=== PATIENT | female | born 1945 ===

== ENCOUNTER → 2018-02-27 | Outpatient (CLI) | payer MEDICARE, OTHER | LOC: GMAJ 16:52 | PROVIDERS: ATTEND Family Medicine | DX: E03.9 Hypothyroidism, unspecified (principal) ==

== ENCOUNTER → 2018-03-20 | Outpatient (CLI) | payer MEDICARE, OTHER ==
--- NOTE | 2018-03-20 17:26 | CT ---
EXAM DESCRIPTION: CTA Chest CLINICAL HISTORY: 72 years, Female, atrial mass, history of mesothelioma and breast cancer COMPARISON: None TECHNIQUE: CT pulmonary angiography is performed with thin-section multi detector technique during rapid bolus administration of routine adult dose of nonionic iodinated IV contrast media. Multiplanar reformatted images are reviewed along with source images and maximum intensity images. FINDINGS: Normal enhancement of pulmonary arteries. Normal enhancement of cardiac chambers. Triangular filling defect projecting from the anterior wall of the left atrium is seen with low density consistent with adherent thrombus 1.9 x 1.2 cm. Correlate with echocardiographic findings. Early enhancement of the aorta is negative for aneurysm or dissection. Lung window images are negative for infiltrate. No worrisome mass or nodule. In the upper abdomen, cysts are seen in the liver which appear benign. The gallbladder is surgically absent. The upper abdominal viscera are otherwise unremarkable. No chest wall mass or rib fracture. No axillary or lower cervical adenopathy. Patient is status post right breast lumpectomy. Coronal and sagittal reformatted MIP images confirm normal pulmonary arterial enhancement. Fibrotic changes in the lung apices. Mild subpleural fibrosis in the anterior upper lobes, right middle lobe and right lower lobe. Patchy density in the medial right lung base is consistent with chronic scarring with bronchiolectasis. No acute-appearing pneumonic infiltrate or malignant appearing lesion of the lungs to suggest primary or metastatic tumor. No bone destruction. Coronal, sagittal and oblique MIP images show normal pulmonary arterial enhancement. Coronal images show minimal groundglass edema or infiltrate in the left lung base. IMPRESSION: Negative for evidence of pulmonary embolic disease. Filling defect in the left atrium consistent with wall-adherent thrombus. This exam was performed according to our departmental dose-optimization program, which includes automated exposure control, adjustment of the mA and/or kV according to patient size and/or use of iterative reconstruction technique. Total DLP equals 570.22 mGycm. Electronically signed by: Tono Bunch MD 03/20/2018 5:24 PM CDT
== END ==
LOC: CT 08:51
PROVIDERS: ATTEND Family Medicine
DX: M54.6 Pain in thoracic spine (principal)

== ENCOUNTER → 2018-10-08 | Outpatient (CLI) | payer MEDICARE, OTHER ==
--- NOTE | 2018-10-08 15:28 | US ---
EXAM DESCRIPTION: Abdomen,Complete: Ultrasound. CLINICAL HISTORY: ABN RESULTS OF LIVER FUNCTION TESTS COMPARISON: None Available. TECHNIQUE: Transabdominal scannin-dimensional and Doppler modes. FINDINGS: Gallbladder: Has been surgically removed. No fluid in the gallbladder fossa. Right upper quadrant nontender with transducer pressure. Common bile duct: 10.6 mm slightly dilated postcholecystectomy. Liver: 10 x 8 mm cyst in the left lobe. Long axis of the right lobe is 12.5 cm. No focal solid lesions seen. Normal flow in the portal vein and intrahepatic ducts not dilated. Smooth capsule with no ascites. Pancreas: Unremarkable.. Abdominal aorta: Normal caliber from the proximal segment to the distal bifurcation. IVC: visualized; normal caliber. Spleen normal echogenicity; long axis measurement is 9.6 cm. Right kidney: 10.0 cm long axis. Normal cortical thickness and echogenicity. No hydronephrosis, large echogenic stones, or perirenal fluid. Left kidney: 9.7 cm long axis. Normal cortical thickness and echogenicity. No hydronephrosis, large echogenic stones, or perirenal fluid. IMPRESSION: 1. Postcholecystectomy. No fluid free fluid or tenderness. Common bile duct slightly dilated postcholecystectomy. 2. 3 mm cyst in the liver. Otherwise unremarkable. Pancreas negative. Spleen is unremarkable. 3. Bilateral kidneys negative findings. Electronically signed by: Carlos Estrella MD 10/08/2018 3:26 PM CDT
--- NOTE | 2018-10-10 09:39 | MAM ---
EXAM DESCRIPTION: 3D Screening BILATERAL : Digital Mammography. CLINICAL HISTORY: 72 years Female SCREENING History of breast cancer on the right breast October 2000.. Remote family history of breast cancer. Postmenopausal 30 years. Taken HRT 5 or more years ago. No childbirth. Lifetime risk of developing breast cancer (Tyrer-Cuzick model)(%): Calculated due to personal history of breast cancer. COMPARISON: Baseline study at this facility.. TECHNIQUE: Bilateral CC and MLO projection full-field images, digital tomosynthesis mammographic technique. Bilateral digital 2-D full-field MLO images. CAD not available for tomosynthesis or 2-D images. FINDINGS: The breast parenchymal density pattern is: Scattered areas of fibroglandular density. No skin thickening or nipple retraction. Multiple large calcifications solitary in the right breast which is significantly smaller than the left breast. Fewer solitary calcifications left breast. Left breast axillary and intramammary lymph nodes. Fibroglandular tissues are central in both breasts. Focal asymmetry in the junction of the posterior middle third of the medial left breast approximately 8 cm from the nipple, 9:00 position. Not associated with abnormal calcifications. No focal, stellate mass or density, focal asymmetry , and no suspicious microcalcifications right breast. IMPRESSION: BI-RADS CATEGORY: 0 - INCOMPLETE- Need additional imaging evaluation. FOLLOW-UP: Recall for additional imaging: Targeted ultrasound of the left breast in the region of interest.. Written communication concerning the IMPRESSION and Follow-up, will be mailed to the patient and referring health care provider. Electronically signed by: Carlos Estrella MD 10/10/2018 9:37 AM CDT
== END ==
LOC: US 09:01
PROVIDERS: ATTEND Family Medicine
DX: Z12.31 Encounter for screening mammogram for malignant neoplasm of breast (principal); R94.5 Abnormal results of liver function studies; Z90.49 Acquired absence of other specified parts of digestive tract; K76.89 Other specified diseases of liver

== ENCOUNTER → 2018-11-24 | Outpatient (CLI) | payer MEDICARE, OTHER ==
--- NOTE | 2018-11-25 08:47 | CT ---
EXAM DESCRIPTION: Abdoment/Pelvis w/o Contrast CLINICAL HISTORY: MICROSCOPIC HEMATURIA COMPARISON: None Available TECHNIQUE: CT of the abdomen and Pelvis was performed without IV contrast. This exam was performed according to our departmental dose-optimization program, which includes automated exposure control, adjustment of the mA and/or kV according to patient size and/or use of iterative reconstruction technique. FINDINGS: No left or right-sided urinary tract calculus, hydronephrosis or perinephric inflammation. 12 mm right renal cortical cyst. No bladder calcification or bladder wall thickening. Tiny calcified granuloma in the right lower lobe. No adenopathy or ascites. No abdominal aortic aneurysm. The gallbladder is surgically absent. Small round low density lesion in the right hepatic lobe, too small to characterize but likely representing a cyst. The liver, spleen, pancreas and adrenals are otherwise unremarkable for noncontrast technique. Dilated small bowel loops. The uterus and ovaries are not seen, correlate with surgical history. Colonic diverticulosis without diverticulitis. Normal appendix. Old healed right inferior pubic ramus fracture. Degenerative changes in the lumbar spine at multiple levels including degenerative disc disease, worse at L5-S1. IMPRESSION: No urinary tract calculus, perinephric inflammation, bladder wall thickening or additional abnormality to explain patient's symptoms. Colonic diverticulosis without diverticulitis. Electronically signed by: Yazan Ortega MD 11/25/2018 8:45 AM CDT
== END ==
LOC: CT 08:24
PROVIDERS: ATTEND Family Medicine
DX: R31.21 Asymptomatic microscopic hematuria (principal); K57.30 Diverticulosis of large intestine without perforation or abscess without bleeding

== ENCOUNTER → 2019-10-09 | Outpatient (CLI) | payer MEDICARE, OTHER | LOC: GMAJ 10:42 | PROVIDERS: ATTEND Family Medicine | DX: E03.9 Hypothyroidism, unspecified (principal); I10 Essential (primary) hypertension ==

== ENCOUNTER → 2019-10-19 | Outpatient (CLI) | payer MEDICARE, OTHER | LOC: GMAJ 11:26 | PROVIDERS: ATTEND Family Medicine | DX: R71.8 Other abnormality of red blood cells (principal) ==

== ENCOUNTER → 2019-11-30 | Outpatient (CLI) | payer MEDICARE, OTHER | LOC: GMAJ 11:25 | PROVIDERS: ATTEND Family Medicine | DX: D50.9 Iron deficiency anemia, unspecified (principal) ==

== ENCOUNTER → 2020-06-14 | Outpatient (CLI) | payer MEDICARE, OTHER | LOC: GMAJ 11:38 | PROVIDERS: ATTEND Family Medicine | DX: D50.0 Iron deficiency anemia secondary to blood loss (chronic) (principal); E03.9 Hypothyroidism, unspecified; I10 Essential (primary) hypertension; I50.22 Chronic systolic (congestive) heart failure ==